=== PATIENT | female | born 1960 | race Caucasian/White ===

== ENCOUNTER 2022-02-07 19:15 | Emergency (ER) | payer BC ==
[2022-02-07] VITALS (9 sets, daily range): BP systolic 124–160; BP diastolic 67–83
[~2022-02-07 19:15] MED LIST: MOBIC7.5 M1 PO
[2022-02-07 19:51] LABS: HEMATOCRIT 40.7 % (37.0-47.0); HEMOGLOBIN 13.9 g/dl (12.0-16.0); IMMATURE GRANULOCYTES 0.3 % (0.0-5.0); MEAN CORPUSCULAR HGB CONC 34.2 g/dL CAL (32.0-36.0); NEUT# 4.9 thou/uL (2.00-7.15); RED BLOOD COUNT 5.15 mill/uL (4.20-5.60); RED CELL DISTRI WIDTH 12.6 % (11.5-15.5)
[2022-02-07 20:23] LABS: ALBUMIN 4.5 g/dL (3.2-5.0); ALKALINE PHOSPHATASE 90 u/l (38-126); ANION GAP 16 (6-22 (CALC)); BILIRUBIN, TOTAL 0.9 mg/dL (0.0-1.4); BUN 10 mg/dL (7-17); BUN/CREATININE RATIO 17 (12-20 (CALC)); CARBON DIOXIDE 27 mmol/l (22-30); CHLORIDE 96 mmol/l (95-108); CREATININE 0.6 mg/dL (0.5-1.0); GFR FOR AFR.AMER. > 60 ML/MIN (>=60 (CALC)); GFR OTHER RACES > 60 ML/MIN (>=60 (CALC)); LIPASE 47 u/l (23-300); POTASSIUM 4.2 mmol/l (3.5-5.1); SGOT/AST 94 u/l (14-36); SODIUM 135 mmol/l (137-146); TOTAL PROTEIN 7.4 g/dL (6.3-8.2)
[2022-02-07 21:14] LABS: URINE BILIRUBIN - DIPSTICK NEGATIVE (NEGATIVE); URINE BLOOD DIPSTICK NEGATIVE (NEGATIVE); URINE COLOR YELLOW; URINE GLUCOSE - DIPSTICK NEGATIVE (NEGATIVE); URINE KETONE 40 mg/dL (NEGATIVE); URINE LEUK ESTERASE NEGATIVE (NEGATIVE); URINE NITRITE - DIPSTICK NEGATIVE (Negative); URINE PROTEIN - DIPSTICK NEGATIVE (NEG-TRACE); URINE SPECIFIC GRAVITY >=1.030; URINE UROBILINOGEN - DIPSTICK 0.2 E.U./dL (0.2)
[2022-02-07] MEDS ORDERED: IMODIUM2 MG PO (21:22)
[2022-02-07] MEDS ORDERED: PROMETHAZINE HY25 M1 PO (21:22)
== END 2022-02-07 21:46 | disposition home or self-care (01) | DRG 392 ==
LOC: ED 19:15
PROVIDERS: Family Medicine
DX: A08.4 Viral intestinal infection, unspecified (principal); F32.A Depression, unspecified; M19.90 Unspecified osteoarthritis, unspecified site

== ENCOUNTER 2023-04-12 08:53 | Observation (INO) | payer BC ==
[2023-04-12] VITALS (19 sets, daily range): BP systolic 105–162; BP diastolic 53–85
[~2023-04-12] VITALS: Ht 160 cm; Wt 91.4 kg
[~2023-04-12 08:53] MED LIST changes: +IMODIUM2 MG PO; +PROMETHAZINE HY25 M1 PO
[2023-04-12] MEDS ORDERED: SODIUM CHLORIDE 0.9% 1,000 ML IV ONE (09:35)
[2023-04-12] MEDS ORDERED: MAGNESIUM SULFATE HEPTAHYDRATE 50 ML IV ONE (09:40)
[2023-04-12] MEDS ORDERED: DiphenhydrAMINE HCL 50 MG/ML SDV IV ONE (09:40)
[2023-04-12] MEDS ORDERED: METOCLOPRAMIDE HCL 10 MG/2 ML SDV IV ONE (09:40)
[2023-04-12 10:27] LABS: BASO% 0.3 % (0-3); EOS% 1.4 % (0-8); HEMATOCRIT 39.4 % (37.0-47.0); HEMOGLOBIN 12.9 g/dl (12.0-16.0); IMMATURE GRANULOCYTES 0.4 % (0.0-5.0); LYMPH% 24.6 % (15-41); MEAN CELL VOLUME 80.9 fL CALC (80.0-100.0); MEAN CORPUSCULAR HGB 26.5 pG CALC (26.0-32.0); MEAN CORPUSCULAR HGB CONC 32.7 g/dL CAL (32.0-36.0); MONO% 8.1 % (2-13); NEUT# 5.18 thou/uL (2.00-7.15); NEUT% 65.2 % (42-76); RED BLOOD COUNT 4.87 mill/uL (4.20-5.60)
[2023-04-12 10:37] LABS: PROTHROMBIN TIME 9.9 SECONDS (9.0-12.5)
[2023-04-12 10:47] LABS: ALBUMIN 4.3 g/dL (3.2-5.0); ALKALINE PHOSPHATASE 87 u/l (38-126); ANION GAP 13 (6-22 (CALC)); BILIRUBIN, TOTAL 0.9 mg/dL (0.02-1.3); BUN 20 mg/dL (8-23); BUN/CREATININE RATIO 30 (12-20 (CALC)); CALCULATED LDLCHOLESTEROL 91 mg/dL (62-129 (CALC)); CARBON DIOXIDE 27 mmol/l (22-30); CHLORIDE 101 mmol/l (95-108); CHOLESTEROL HDL RATIO 4.3 (<4.4 (CALC)); CREATININE 0.7 mg/dL (0.5-1.0); GFR FOR AFR.AMER. > 60 ML/MIN (>=60 (CALC)); GFR OTHER RACES > 60 ML/MIN (>=60 (CALC)); HDL CHOLESTEROL 44 mg/dL (39.0-59.0); POTASSIUM 4.5 mmol/l (3.5-5.1); SGOT/AST 83 u/l (9-36); SODIUM 136 mmol/l (137-146); TOTAL CHOLESTEROL 187 mg/dl (0-199); TOTAL PROTEIN 7.2 g/dL (6.3-8.2); TOTAL TRIGLYCERIDES 262 mg/dl (0-149); VLDL CHOLESTROL 52 mg/dl (1-41 (CALC))
[2023-04-12] MEDS ORDERED: ASPIRIN 81 MG/TAB PO ONE (13:30)
[2023-04-12 13:31] LABS: URINE BILIRUBIN - DIPSTICK Negative (NEGATIVE); URINE BLOOD DIPSTICK Negative (NEGATIVE); URINE GLUCOSE - DIPSTICK Negative (NEGATIVE); URINE KETONE Negative (NEGATIVE); URINE LEUK ESTERASE Negative (NEGATIVE); URINE NITRITE - DIPSTICK Negative (Negative); URINE PROTEIN - DIPSTICK Negative (NEG-TRACE); URINE SPECIFIC GRAVITY <=1.005; URINE UROBILINOGEN - DIPSTICK 0.2 E.U./dL (0.2)
[2023-04-12 13:32] LABS: URINE COLOR Yellow
[2023-04-12] MEDS ORDERED: SODIUM CHLORIDE 0.9% 1,000 ML IV PRN (13:40)
[2023-04-12] MEDS ORDERED: ACETAMINOPHEN 325 MG/TAB PO PRN (13:40)
[2023-04-12] MEDS ORDERED: DEXTROSE 250 ML IV PRN (13:40)
[2023-04-12] MEDS ORDERED: MAGNESIUM HYDROXIDE 30 ML UDC PO PRN (13:40)
[2023-04-12] MEDS ORDERED: CARAFATE1 GM PO ×2 (14:12→14:16)
[2023-04-12] MEDS ORDERED: VENLAFAXINE HCL75 M1 PO (14:14)
[2023-04-12] MEDS ORDERED: WELLBUTRIN XL150 MG PO (14:14)
[2023-04-12] MEDS ORDERED: COZAAR100 MG PO (14:17)
[2023-04-12] MEDS ORDERED: METFORMIN HCL1000 MG PO (14:18)
[2023-04-12] MEDS ORDERED: PROTONIX20 M1 PO (14:18)
[2023-04-12] MEDS ORDERED: SINGULAIR10 MG PO (14:19)
[2023-04-12] MEDS ORDERED: WOMENS PO (14:22)
[2023-04-12] MEDS ORDERED: TRULICITY1.5 MG/0.5 (14:22)
[2023-04-12] MEDS ORDERED: MULT PO (14:22)
[2023-04-12] MEDS ORDERED: SUCRALFATE 1 GM/TAB PO SCH (17:00)
[2023-04-12] MEDS ORDERED: VENLAFAXINE HYDROCHLORIDE 75 MG/CAP PO SCH (21:00)
[2023-04-12] MEDS ORDERED: buPROPion HCL 150 MG TAB SR PO SCH (21:00)
[2023-04-12] MEDS ORDERED: LOSARTAN Potassium 50 MG/TAB PO SCH (21:00)
[2023-04-12] MEDS ORDERED: ENOXAPARIN SODIUM 40 MG/0.4 ML SYR SC SCH (21:00)
[2023-04-12] MEDS ORDERED: PANTOPRAZOLE SODIUM Sesquihydr 40 MG/TAB PO SCH (21:00)
[2023-04-12] MEDS ORDERED: ASPIRIN EC 81 MG/TAB PO SCH (21:00)
[2023-04-12] MEDS ORDERED: MONTELUKAST SODIUM 10 MG/TAB PO SCH (21:00)
[2023-04-12] MEDS ORDERED: ATORVASTATIN CALCIUM 40 MG/TAB PO SCH (21:00)
[2023-04-13 05:11] VITALS: BP 154/74
[2023-04-13 06:22] LABS: BASO% 0.2 % (0-3); EOS% 2.3 % (0-8); HEMATOCRIT 38.3 % (37.0-47.0); HEMOGLOBIN 12.8 g/dl (12.0-16.0); IMMATURE GRANULOCYTES 0.3 % (0.0-5.0); LYMPH% 39.8 % (15-41); MEAN CELL VOLUME 81.3 fL CALC (80.0-100.0); MEAN CORPUSCULAR HGB 27.2 pG CALC (26.0-32.0); MEAN CORPUSCULAR HGB CONC 33.4 g/dL CAL (32.0-36.0); MONO% 8.9 % (2-13); NEUT# 3.15 thou/uL (2.00-7.15); NEUT% 48.5 % (42-76); RED BLOOD COUNT 4.71 mill/uL (4.20-5.60); RED CELL DISTRI WIDTH 13.9 % (11.5-15.5)
[2023-04-13 06:41] LABS: ALKALINE PHOSPHATASE 105 u/l (38-126); ANION GAP 14 (6-22 (CALC)); BILIRUBIN, TOTAL 0.7 mg/dL (0.02-1.3); BUN 12 mg/dL (8-23); BUN/CREATININE RATIO 21 (12-20 (CALC)); CARBON DIOXIDE 24 mmol/l (22-30); CHLORIDE 104 mmol/l (95-108); CREATININE 0.6 mg/dL (0.5-1.0); GFR FOR AFR.AMER. > 60 ML/MIN (>=60 (CALC)); GFR OTHER RACES > 60 ML/MIN (>=60 (CALC)); MAGNESIUM 1.8 mg/dL (1.6-2.3); POTASSIUM 4.2 mmol/l (3.5-5.1); SGOT/AST 63 u/l (9-36); SODIUM 138 mmol/l (137-146); TOTAL PROTEIN 6.7 g/dL (6.3-8.2)
[2023-04-13 07:54] VITALS: BP 153/87
[2023-04-13 08:05] VITALS: BP 153/87
[2023-04-13] MEDS ORDERED: ASPIRIN EC 81 MG/TAB PO SCH (09:00)
[2023-04-13 12:34] VITALS: BP 144/75
[2023-04-13] MEDS ORDERED: MECLIZINE HCL 25 MG/TAB PO PRN (12:35)
[2023-04-13 12:36] VITALS: BP 144/75
[2023-04-13] MEDS ORDERED: ADLT ASA LOW81 MG PO (14:30)
[2023-04-13] MEDS ORDERED: MECLIZINE25 MG PO (14:31)
[2023-04-13] MEDS ORDERED: metFORMIN HYDROCHLORIDE 500 MG/TAB PO SCH (17:30)
== END 2023-04-13 15:10 | disposition home or self-care (01) | DRG 149 ==
LOC: ED 08:53 → ED-I 13:10 → ED 13:31 → MS2 13:32
PROVIDERS: Family Medicine; ADMIT Student in an Organized Health Care Education/Training Program; ATTEND Student in an Organized Health Care Education/Training Program
DX: R42 Dizziness and giddiness (principal); R11.2 Nausea with vomiting, unspecified; R51.9 Headache, unspecified; R20.0 Anesthesia of skin; I10 Essential (primary) hypertension; E11.9 Type 2 diabetes mellitus without complications; K21.9 Gastro-esophageal reflux disease without esophagitis; F32.A Depression, unspecified
CPT/HCPCS: G0378; J1650; J3475; Q9967